=== PATIENT | female | born 2000 | race African-American/Black ===

== ENCOUNTER 2021-06-05 22:31 | Emergency (ER) | payer MEDICAID ==
[~2021-06-05] VITALS: Ht 162.6 cm; Wt 64.5 kg
[2021-06-06 01:29] LABS: URINE PREG TEST NEGATIVE (NEGATIVE)
[2021-06-06 03:03] LABS: RSV AMPLIFICATION NEGATIVE (NEGATIVE)
[2021-06-06 04:19] VITALS: BP 128/62
== END 2021-06-06 04:26 | disposition home or self-care (01) ==
LOC: M ED 22:31
DX: B34.9 Viral infection, unspecified (principal)